=== PATIENT | female | born 1965 | race Caucasian/White ===

== ENCOUNTER 2018-07-11 11:59 | Day surgery (SDC) | payer OTHER ==
[2018-07-11] VITALS (8 sets, daily range): BP systolic 133–156; BP diastolic 83–98
[~2018-07-11] VITALS: Ht 162.6 cm; Wt 70.3 kg
--- NOTE | 2018-07-11 07:17 | Anethesia Preoperative Eval ---
Anesthesia Pre-op PMH/ROS General Date of Evaluation: Jul 11, 2018 Time of Evaluation: 07:17 Anesthesiologist: binta ASA Score: ASA 3 Mallampati Score Class I : Soft palate, uvula, fauces, pillars visible Class II: Soft palate, uvula, fauces visible Class III: Soft palate, base of uvula visible Class IV: Only hard plate visible Mallampati Classification: Class II Surgeon: hosea Diagnosis: colon screening Surgical Procedure: colonoscopy Anesthesia History: none Social History: smoking - nonsmoker Family History: no anesthesia problems Allergies: Coded Allergies: No Known Allergies (Unverified , 07/10/18) Medications: see eMAR Patient NPO?: Yes Past Medical History Pulmonary: Reports: asthma Neurologic/Psychiatric: Reports: depression/anxiety PSxH Narrative: appendectomy, cholecystectomy Anesthesia Pre-op Phys. Exam Physician Exam Last Vital Signs Date Time Temp Pulse Resp B/P (MAP) Pulse Ox O2 Delivery O2 Flow Rate FiO2 07/11/18 13:00 73 20 152/98 98 Room Air 07/11/18 12:30 97.1 Constitutional: NAD Neurologic: CN 2-12 intact Cardiovascular: RRR Respiratory: CTA Gastrointestinal: S/NT/ND Airway Exam Mallampati Score: Class II MO: full Neck: flexible TMD: 2fb ROM: full Anesthesia Pre-op A/P Risk Assessment & Plan Assessment: asa3 Plan: mac Status Change Before Surgery: No Pre-Antibiotics Drug: Shawanda Huggins MD Jul 11, 2018 07:17
[~2018-07-11 11:59] MED LIST: Atropine Inj 1mg/10ml Syr IV PRN; DiphenhydrAMINE 50mg/ml Inj IVP PRN; LR 1000ml 1,000 ML IVLG SCH; Midazolam 2mg/2ml Inj IVP PRN; fentaNYL 100 mcg/2 mL IV PRN
[2018-07-11] MEDS ORDERED: LEXAPRO10 MG ORAL (12:30)
[2018-07-11] MEDS ORDERED: DUAVEE 0.45-201 EACH PO (12:30)
[2018-07-11] MEDS ORDERED: CLARITIN10 M1 ORAL (12:30)
[2018-07-11] MEDS ORDERED: LR 1000ml ONE (13:05)
[2018-07-11] MEDS ORDERED: Lidocaine 1% MPF 10mg/ml 5ml ONE (13:05)
[2018-07-11] MEDS ORDERED: Propofol 200mg/20ml IV ONE (13:05)
--- NOTE | 2018-07-11 13:12 | Pre-Procedure Note/Attestation ---
Pre-Procedure Note/Attestation Complete Prior to Procedure Planned Procedure: not applicable Procedure Narrative: Colonoscopy, possible biospy, polypectomy, hemostasis, submucosal injection Indications for Procedure Pre-Operative Diagnosis: cancer screening Attestation I attest that I discussed the nature of the procedure; its benefits; risks and complications; and alternatives (and the risks and benefits of such alternatives ), prior to the procedure, with the patient (or the patient's legal disability representative). I attest that, if there was a reasonable possibility of needing a blood transfusion, the patient (or the patient's legal disability representative) was given the [facility] standardized written summary, pursuant to the Yaya Dayanara Blood Safety Act ([place] Health and Safety Code # 1645, as amended). I attest that I re-evaluated the patient just prior to the surgery and that there has been no change in the patient's H&P, except as documented below: Italia Rajput MD Jul 11, 2018 13:12
--- NOTE | 2018-07-11 14:35 | Immediate Post-Op Evaluation ---
Immediate Post-Op Evalulation Immediate Post-Op Evalulation Procedure: colonoscopy/bx Date of Evaluation: Jul 11, 2018 Time of Evaluation: 14:22 IV Fluids: 500ml lr Blood Products: none Estimated Blood Loss: negligible Blood Pressure Systolic: 135 Blood Pressure Diastolic: 88 Pulse Rate: 80 Respiratory Rate: 18 O2 Sat by Pulse Oximetry: 100 Temperature (Fahrenheit): 97.1 Pain Score (1-10): 0 Nausea: No Vomiting: No Complications none Patient Status: awake, reacts, patent Hydration Status: adequate Drug: Shawanda Huggins MD Jul 11, 2018 14:35
--- NOTE | 2018-07-11 14:37 | 48 Hour Post Anesthesia Eval ---
Post Anesthesia Evaluation Procedure: colonoscopy/bx Date of Evaluation: Jul 11, 2018 Time of Evaluation: 14:24 Blood Pressure Systolic: 134 0: 83 Pulse Rate: 82 Respiratory Rate: 18 Temperature (Fahrenheit): 97.1 O2 Sat by Pulse Oximetry: 100 Airway: patent Nausea: No Vomiting: No Pain Intensity: 0 Hydration Status: adequate Cardiopulmonary Status: stable Mental Status/LOC: patient returned to baseline Post-Anesthesia Complications: none Follow-up care needed: N/A Shawanda Lamb MD Jul 11, 2018 14:37
--- NOTE | 2018-07-11 22:15 | Operative Note - Dictated ---
DATE OF OPERATION: 07/11/2018 PREPROCEDURE DIAGNOSIS: Cancer screening. POSTPROCEDURE DIAGNOSES: Polyps x2 (ascending colon, rectum), pandiverticulosis (wide-based in sigmoid colon), small internal hemorrhoids. PROCEDURE: Colonoscopy with cold forceps biopsy. SURGEON: Italia Rajput M.D. ANESTHESIOLOGIST: Shawanda Lamb M.D. ANESTHESIA: Propofol sedation. INDICATION FOR PROCEDURE: The patient is a 52-year-old female, who had undergone a laparoscopic appendectomy by me on 02/21/2018. The patient never had a colonoscopy and in light of her age, it was determined at this time to proceed with the first time colonoscopy. DESCRIPTION OF PROCEDURE: Upon consent of the patient, the patient was brought to the procedure room and placed in a left lateral decubitus position on the gurney. Once adequate sedation had been established with propofol drip, digital rectal exam was performed, which showed some small internal hemorrhoids. An Olympus colonoscope was advanced through the anus and into the rectum. The descending colon, splenic flexure, transverse colon, hepatic flexure, and ascending colon were visualized. The cecum was easily reached, and the ileocecal valve and appendiceal orifice were identified. The patient's prep was noted to be good. The terminal ileum was intubated and was noted to be normal. The colonoscope was slowly withdrawn. There was noted to be small two benign appearing polyps in the ascending colon and also in the rectum. These were all removed with the cold forceps biopsy and send off the field as separate specimens. The patient of note was noted to have pandiverticulosis, which was wide-based and more extensive in the sigmoid colon. Upon reaching the rectum, the colonoscope was retroflexed and there was noted to be small internal hemorrhoids. The scope was straightened, air was evacuated from the rectum, and the colonoscope was removed. The patient was awakened from anesthesia and brought to the postanesthesia recovery in stable condition. There were no complications. IMPRESSION: Polyps x2, pandiverticulosis, and small internal hemorrhoids. PLAN: Repeat colonoscopy in 5 years, continue high-fiber diet, and yearly followup. Italia Rajput M.D. DR: GIUSEPPE JOB#: [id number] CC: Marc Vann M.D. LIZA CAPIENDO, M.D.; FAX#: [phone]
== END 2018-07-11 14:50 | disposition home or self-care (01) ==
LOC: GAS 11:59
DX: Z12.11 Encounter for screening for malignant neoplasm of colon (principal); K63.5 Polyp of colon; K57.30 Diverticulosis of large intestine without perforation or abscess without bleeding; K64.8 Other hemorrhoids; J45.909 Unspecified asthma, uncomplicated; F32.9 Major depressive disorder, single episode, unspecified; F41.9 Anxiety disorder, unspecified; Z90.49 Acquired absence of other specified parts of digestive tract
CPT/HCPCS: 45380; J2704; 94003; 94150